=== PATIENT | female | born 1980 | race Two or more races ===

== ENCOUNTER 2024-10-18 15:30 | Inpatient (IN) | payer MEDICAID ==
[~2024-10-18] VITALS: Ht 172.7 cm; Wt 81.6 kg
[2024-10-18] MEDS ORDERED: OMEP20TA PO (15:57)
[2024-10-18] MEDS ORDERED: DOCU-94 PO (15:57)
[2024-10-18] MEDS ORDERED: ASPI-543 PO (15:57)
[2024-10-18] MEDS ORDERED: PREN-96 PO (15:57)
[2024-10-18] MEDS: LABETALOL HCL 200 MG TAB PO ONE (17:14)
[2024-10-18] MEDS: hydrALAZINE HCL 20 MG/ML VL IV PRN (17:44)
[2024-10-18 17:59] LABS: Hematocrit 34.4 % (36.0-46.0); Hemoglobin 11.3 g/dL (12.2-16.2); Mean Corpuscular Hemoglobin 29.6 pg (28.0-32.0); Mean Corpuscular Volume 89.7 fL (80.0-100.0); Nucleated Red Blood Cells % 0.1 %
--- NOTE | 2024-10-18 17:59 | DVH ---
EXAM: US OB ULTRASOUND COMP GTR 14 WKS CLINICAL HISTORY: Gest HTN, Twins, AMA COMPARISON: None TECHNIQUE: Grayscale, color-flow Doppler, and spectral Doppler ultrasound of the pelvis is performed by transabdominal technique. Findings: Twin live intrauterine . Cervical os is suboptimally visualized. Limited evaluation of anatomy. Twin A in vertex presentation with heart rate of 127 bpm. Placenta is anterior in location with out evidence of previa or abruption. Estimated gestational age 28 weeks 5 days based on parameters which include biparietal diameter 7.7 cm, head circumference 26.8 cm, abdominal circumference 22.9 cm, and femur length 5.[address] ratios within normal limits. Estimated weight 1099 g (2 lb 7 oz ). Twin B in vertex presentation with heart rate of 134 bpm. Placenta is posterior in location wit hout evidence of previa or abruption. Estimated gestational age 29 weeks 2 days based on parameters which include biparietal diameter 7.8 cm, head circumference 27.3 cm, abdominal circumference 22.8 cm, and femur length 5.[address] ratios within normal limits. Estimated weight 1196 g (2 lb 10 oz ). Impression: 1. Twin live intrauterine . 2. Twin A in vertex presentation with heart rate of 127 bpm. 3. Estimated gestational age 28 weeks 5 days with estimated date of confinement 01/05/2025. 4. Twin B in vertex presentation with heart rate of 134 bpm. 5. Estimated gestational age 29 weeks 2 days with estimated date of confinement 01/01/2025.
[2024-10-18 18:09] LABS: Urine Protein, UAD 1+ (Negative)
[2024-10-18 18:13] LABS: Protein, Urine 36.8 mg/dL (1-14)
[2024-10-18 18:13] LABS: Alanine Aminotransferase 12 U/L (7-40); Albumin 3.3 g/dL (3.2-4.8); Anion Gap 9 (5-15); BUN/Creatinine Ratio 15.1 (10.0-20.0); Bilirubin, Total 0.4 mg/dL (0.2-1.0); Blood Urea Nitrogen 11 mg/dL (9-23); Calcium 9.0 mg/dL (8.7-10.4); INR 0.93 (0.9-1.15); Partial Thromboplastin Time 29.2 SEC (24.5-34.5); Potassium 4.2 mmol/L (3.5-5.1); Prothrombin Time 9.9 sec (9.3-11.8); Total Protein 5.8 g/dL (5.7-8.2); Uric Acid 5.8 mg/dL (3.1-7.8)
[2024-10-18 18:16] LABS: Amphetamine Screen, Urine Neg (NEGATIVE)
[2024-10-18 18:16] LABS: Alkaline Phosphatase 189 U/L (46-116); Carbon Dioxide 18 mmol/L (20-31); Chloride 108 mmol/L (98-107); Glucose 63 mg/dL (74-106); Sodium 135 mmol/L (136-145)
[2024-10-18 18:18] LABS: Barbiturate Scree,Urine Neg (NEGATIVE); Benzodiazephine Screen, Urine Neg (NEGATIVE); Cannabinoid Screen, Urine Neg (NEGATIVE); Cocaine Screen, Urine Neg (NEGATIVE); Opiate Scree,Urine Neg (NEGATIVE); Phencyclidine Screen, Urine Neg (NEGATIVE)
--- NOTE | 2024-10-18 18:48 | DVHHP2 ---
OB CC & HPI Date Date of Admission: Oct 18, 2024 Patient Identification: : 1 Para: 0 EDC: Dec 29, 2024 EGA: 29.5wks Chief Complaints: Reason for admission: other (preeclampsia/AMA/Twins 29.5wks) History of Present Complaints 44yo IUP@29.5wks presents to L&D for scheduled testing for twins and GHTN. Pt takes labetalol 100mg PO BID. +FM, denies VB/LOF/POTTER/vision changes/RUQ pain. BPs found to be the severe range. Preeclampsia/OB labs and OB complete ordered by Dr. Horner. BLE 2+ pitting edema. Past Medical History Cardiac: No pertinent Hx Pulmonary: No pertinent Hx Central Nervous System: No pertinent Hx GI: No pertinent Hx Hemotology/Oncology: No pertinent Hx Hepatobiliary: No pertinent Hx Psychiatric: No pertinent Hx Musculoskeletal: No pertinent Hx Rheumotologic: No pertinent Hx Infectious Disease: No peritnent Hx ENT: No pertinent Hx Renal/: No pertinent Hx Endocrine: No pertinent Hx Dermatology: No pertinent Hx Others tummy tuck breast augmentation gastric sleeve all in 2009 OB History OB History Care: Limited Care (late transfer of care from [place]) Obstetrical Complications: Pre-eclampsia Medical Complications: None Allergies: Coded Allergies: NO KNOWN ALLERGIES (Unverified , 10/18/24) Home Meds Reported Medications Docusate Sodium (Colace) 100 Mg Cap, 1 CAP PO BID, #30 CAP 10/18/24 Aspirin (Aspir-Low) 81 Mg Tab, 81 MG PO DAILY for 30 Days, MG 10/18/24 Vit W/ Ferrous Fumara ( One Daily) Daily Tab, 1 TAB PO DAILY, #90 TAB 3 Refills 10/18/24 Omeprazole (Gnp Omeprazole) 20 Mg Tab, 1 TAB PO DAILY, #90 TAB 1 Refill 10/18/24 Home Meds labetalol 100mg PO BID Current Medications Current Medications Medications (Trade) Dose Ordered Sig/Malachi Route PRN Reason Start Time Stop Time Status Last Admin Hydralazine HCl (Apresoline Injection) 5 mg Q20MP PRN IV SBP>160 or DBP>95 10/18/24 17:45 10/18/24 17:44 Family & Social History Family/Social History Blood Type: Unknown Rubella: unknown RPR/VDRL: Unknown GBS Status: Unknown HBsAG: Unknown Review of Systems Constitutional: No symptom reported Ears, Nose, & Throat: No symptom reported Eyes: No symptom reported Pulmonary/Respiratory: No symptom reported Cardiovascular: No symptom reported Gastrointestinal: No symptom reported Genitourinary: No symptom reported Musculoskeletal: No symptom reported Skin: No symptom reported Psychiatric: No symptom reported Endocrine: No symptom reported Hemotologic/Lymphatic: No symptom reported OB Admission Exam Physical Exam Vitals: Vital Signs Date Time Temp Pulse Resp B/P (MAP) Pulse Ox O2 Delivery O2 Flow Rate FiO2 10/18/24 17:44 186/96 10/18/24 17:14 65 Laboratory Tests Test 10/18/24 16:00 10/18/24 17:43 Range/Units Urine Color Yellow Yellow Urine Clarity Turbid H Clear Urine pH 5.5 5.0-9.0 Urine Specific [place] 1.032 1.001-1.035 Urine Protein 1+ H Negative Urine Ketones Negative Negative Urine Blood Negative Negative /uL Urine Nitrite Negative Negative Urine Bilirubin Negative Negative Urine Urobilinogen Normal Negative mg/dL Urine Leukocyte Esterase 3+ Negative /uL Urine RBC <1 0 - 4 /hpf Urine Microscopic WBC 23 H 0-5 /HPF Urine Squamous Epithelial Cells Many <5 /hpf Urine Bacteria None seen None Seen /hpf Urine Mucus Few None Seen Urine Creatinine 307.55 H 30.0-125.0 mg/dL Urine Protein/Creatinine Ratio 0.12 Urine Glucose Normal Normal mg/dL Urine Total Protein 36.8 H 1-14 mg/dL White Blood Count 8.2 4.4-10.8 10^3/uL Red Blood Count 3.83 L 4.0-5.20 10^6/uL Hemoglobin 11.3 L 12.2-16.2 g/dL Hematocrit 34.4 L 36.0-46.0 % Mean Corpuscular Volume 89.7 80.0-100.0 fL Mean Corpuscular Hemoglobin 29.6 28.0-32.0 pg Mean Corpuscular Hemoglobin Concent 33.0 32.0-36.0 g/dL Red Cell Distribution Width 14.5 H 11.8-14.3 % Platelet Count 189 140-450 10^3/uL Mean Platelet Volume 11.4 H 6.9-10.8 fL Neutrophils (%) (Auto) 60.9 37.0-80.0 % Lymphocytes (%) (Auto) 28.7 10.0-50.0 % Monocytes (%) (Auto) 9.3 0.0-12.0 % Eosinophils (%) (Auto) 0.6 0.0-7.0 % Basophils (%) (Auto) 0.5 0.0-2.0 % Neutrophils # (Auto) 5.0 1.6-8.6 10 ^3/uL Lymphocytes # (Auto) 2.4 0.4-5.4 10 ^3/uL Monocytes # (Auto) 0.8 0-1.3 10 ^3/uL Eosinophils # (Auto) 0 0-0.8 10 ^3/uL Basophils # (Auto) 0 0-0.2 10 ^3/uL Nucleated Red Blood Cells 0.1 % Prothrombin Time 9.9 9.3-11.8 sec Prothrombin Time INR 0.93 0.9-1.15 Activated Partial Thromboplast Time 29.2 24.5-34.5 SEC Sodium Level 135 L 136-145 mmol/L Potassium Level 4.2 3.5-5.1 mmol/L Chloride Level 108 H 98-107 mmol/L Carbon Dioxide Level 18 L 20-31 mmol/L Anion Gap 9 5-15 Blood Urea Nitrogen 11 9-23 mg/dL Creatinine 0.73 0.550-1.02 mg/dL Glomerular Filtration Rate Calc 103 >90 mL/min BUN/Creatinine Ratio 15.1 10.0-20.0 Serum Glucose 63 L 74-106 mg/dL Uric Acid 5.8 3.1-7.8 mg/dL Calcium Level 9.0 8.7-10.4 mg/dL Total Bilirubin 0.4 0.2-1.0 mg/dL Aspartate Amino Transferase (AST) 24 13-40 U/L Alanine Aminotransferase (ALT) 12 7-40 U/L Alkaline Phosphatase 189 H 46-116 U/L Total Protein 5.8 5.7-8.2 g/dL Albumin 3.3 3.2-4.8 g/dL HEENT: Nasal Mucosa Normal, Oropharynx Normal Heart: Rhythm Normal Lungs: Clear Abdomen: Gravid Extremities: Normal Reflexes: Normal Pelvic Exam: TWIN A: FHR 130, vertex, 1099g TWIN B: FHR 140, vertex, 1196g Contractions on Admission: None OB Plan Plan Admitting Diagnosis: 29.5wks Twin Preeclampsia with severe features AMA Plan: Other (Dr. Horner transferring pt to higher level of care via air to [facility] with accepting physician, Dr. Garcia.) Visit Coding OBGYN Date of Service: Oct 18, 2024 Billing Provider: GISELLA HORNER DO [employer] TE[employer]ER Common Visit Codes: 18065-ZYBSFWP INP/OBS CARE (HIGH) [employer] TE[employer]ER Procedure Codes: 30033-95- NON-STRESS TEST PEBBLES BROCK CNM Oct 18, 2024 18:48
[2024-10-18] MEDS ORDERED: MAGNESIUM SULFATE 100 ML IV ONE (19:00)
[2024-10-18] MEDS: MAGNESIUM SULFATE 100 ML IV ONE (19:15)
[2024-10-18 19:31] LABS: Amphetamine Screen, Urine Neg (NEGATIVE); Barbiturate Scree,Urine Neg (NEGATIVE); Benzodiazephine Screen, Urine Neg (NEGATIVE); Cannabinoid Screen, Urine Neg (NEGATIVE); Cocaine Screen, Urine Neg (NEGATIVE); Opiate Scree,Urine Neg (NEGATIVE); Phencyclidine Screen, Urine Neg (NEGATIVE)
[2024-10-18] MEDS: MAGNESIUM SULFATE 40MG/ML 1,000 ML IV ONE (19:31)
[2024-10-18 20:25] VITALS: RESP 16
--- NOTE | 2024-10-19 12:19 | DVHTS ---
Transfer Summary Transfer Summary Date of Admission Oct 18, 2024 at 18:40 Date of Transfer: Oct 18, 2024 Transfer Diagnosis twins ,pih 29 wks Brief Hx & Hospital Course: pt is admitted for severe pih with twins ,pt is ama Transfer to: [facility] dr benjamin Discharge Instructions: via air Transfer Status stable Scheduled Aspirin (Aspir-Low), 81 MG PO DAILY, (Reported) Docusate Sodium (Colace), 1 CAP PO BID, (Reported) Omeprazole (Gnp Omeprazole), 1 TAB PO DAILY, (Reported) Vit W/ Ferrous Fumara ( One Daily), 1 TAB PO DAILY, (Reported) Visit Coding OBGYN Date of Service: Oct 18, 2024 Billing Provider: GISELLA TEJADA DO FORMS ANALYSIS MANAGER Common Visit Codes: 86928-[id number] OBS CARE (HIGH) FORMS ANALYSIS MANAGER Procedure Codes: 45071-15- NON-STRESS TEST GISELLA TEJADA DO Oct 19, 2024 12:19
--- NOTE | 2024-10-19 12:23 | DVHDS2 ---
Physician Discharge Progress N Final Diagnosis: PIH, twins, AMA Operations or Procedures: Operations or Procedures nst reactive reviwede,sono,labs Condition on Discharge: Higher Level of Care Disposition: Acute Care Facility Discharge Instructions: Diet: Regular Activity: No Restrictions, As Tolerated Medications: mg Follow Up Care: Specialist: [facility] Discharge Statement: "Patient was advised to return to the ER or call 911 if any headaches, dizziness, shortness of breath, chest pain, abdominal pain, bleeding, fevers, or worsening of medical condition. Patient was counseled about treatment plan, medications, possible side effects, patientverbalized understanding. All questions were answered to the best of my ability. This discharge took greater then 30 minutes in planning, reviewing documentation, counseling the patient, and discussing with other team members." Visit Coding OBGYN Date of Service: Oct 18, 2024 Billing Provider: GISELLA TEJADA DO SUPERVISOR [employer]ANING AND [employer]NEALING Common Visit Codes: 64111-[id number] OBS CARE (HIGH) [employer]ING Procedure Codes: 52100-99- NON-STRESS TEST GISELLA TEJADA DO Oct 19, 2024 12:23
== END 2024-10-18 21:11 | disposition short-term general hospital (02) | DRG 566 ==
LOC: LDRP 15:30 → UNDOADMOB 15:30 → LDRP 15:41 → INTOOBSV 18:40 → OBSVTOIN 18:40 → UNDODISIN 21:11
PROVIDERS: ADMIT Obstetrics & Gynecology; ATTEND Obstetrics & Gynecology
DX: O14.13 Severe pre-eclampsia, third trimester (principal); O09.523 Supervision of elderly multigravida, third trimester; O30.003 Twin pregnancy, unspecified number of placenta and unspecified number of amniotic sacs, third trimester; Z3A.29 29 weeks gestation of pregnancy; Z79.899 Other long term (current) drug therapy
CPT/HCPCS: 36415; 59025; 76805; 80053; 80307; 81001; 81002; 82570; 83735; 84156; 84550; 85025; 85610; 85730; 86850; 86900; 86901; 94760; 96360; 96361; 96365; 96366; 96374; 96375; G0378